=== PATIENT | male | born 1990 | race Caucasian/White ===

== ENCOUNTER 2018-06-03 09:56 | Emergency (ER) | payer OTHER ==
[~2018-06-03] VITALS: Ht 177.8 cm; Wt 116.9 kg
[2018-06-03 10:02] VITALS: TEMP 36.7; Ht 177.8 cm; Wt 116.9 kg
[2018-06-03] MEDS ORDERED: ONDANSETRON INJ 2 MG/ML 2 ML VIAL IV STA (10:25)
[2018-06-03] MEDS ORDERED: SODIUM CHLORIDE 0.9% 1000ML 1,000 ML IV STA (10:25)
[2018-06-03] MEDS ORDERED: GI COCKTAIL PO ONE (10:30)
[2018-06-03] MEDS ORDERED: BUPR2MIS SL (10:43)
[2018-06-03 10:46] LABS: BASO % 0.4 %; BASO ABS # 0.03 K/uL (0-0.2); EOS % 15.4 %; EOS ABS # 1.06 K/uL (0-0.5); HEMATOCRIT 41.3 % (42-52); HEMOGLOBIN 14.1 g/dL (14.0-18.0); IG# 0.02 K/uL (0.00-0.02); LYMPH % 35.1 %; LYMPH ABS # 2.42 K/uL (1.2-3.4); MEAN CELL VOLUME 88.6 fL (80-100); MEAN CORPUSCULAR HEMOGLOBIN 30.3 pg (25-34); MEAN CORPUSCULAR HGB CONC 34.1 g/dl (32-36); MEAN PLATELET VOLUME 10.5 fL (7.4-10.4); MONO ABS # 0.69 K/uL (0.11-0.59); NEUT % 38.8 %; NEUT ABS # 2.68 K/uL (1.4-6.5); PLATELET COUNT 274 K/uL (130-400); RED CELL DISTRIBUTION WIDTH CV 12.8 % (11.5-14.5); RED CELL DISTRIBUTION WIDTH SD 41.3 fL (36.4-46.3)
[2018-06-03] MEDS ORDERED: LIDOCAINE HCL 2% VISC SOLN 20 ML UDC ONE (11:15)
[2018-06-03] MEDS ORDERED: ALUMINUM/MAGNESIUM SUSP 30 ML UDC ONE (11:15)
[2018-06-03 11:25] LABS: CREATININE 0.96 mg/dl (0.60-1.40); TOTAL PROTEIN 7.5 gm/dl (6.4-8.2)
--- NOTE | 2018-06-03 12:04 | DIAGNOSTIC IMAGING REPORT ---
GALLBLADDER-ABD LIMITED CLINICAL HISTORY: epigastic abd paiun pain. Nausea. TECHNIQUE: Ultrasound COMPARISON STUDY: None FINDINGS: Normal gallbladder. Common bile duct 6 mm. Liver is uniform throughout. Pancreas and right kidney are unremarkable. IMPRESSION: Normal study The above report was generated using voice recognition software. It may contain grammatical, syntax or spelling errors. Electronically signed by: Massimo Carbajal M.D. 06/03/2018 12:02 PM Dictated Date/Time: 06/03/2018 12:02 PM
[2018-06-03 12:39] VITALS: BP 118/60; PULSE 78; O2SAT 98
[2018-06-03 12:50] LABS: POTASSIUM 3.9 mmol/L (3.5-5.1)
--- NOTE | 2018-06-03 16:29 | EMERGENCY ROOM VISIT NOTE ---
History Report prepared by Mahendra: aMry Wong Under the Supervision of: Dr. Ismael Espino D.O. First contact with patient: 10:13 Chief Complaint: ABDOMINAL PAIN Stated Complaint: STOMACH PAIN, DIZZINESS History of Present Illness The patient is a 28 year old male who presents to the Emergency Room with complaints of constant abdominal pain that started 5 hours ago. The patient states that when he awoke with the pain. The patient states that the pain is localized to the center of his stomach above his belly button. He states that his pain has decreased in severity since this morning. He states that bending over alleviates the pain and that sitting straight up exacerbates the pain. The patient notes that he has a history of ulcers, but notes that this pain is not as severe as the pain experienced during the ulcer. The patient notes that his last bowel movement was last night. The patient complains of lightheadedness. The patient denies nausea, vomiting, melena, hematochezia, urinary symptoms, and a history of abdominal surgeries. Source of History: patient Onset: 5 hours ago Position: abdomen Timing: constant Modifying Factors (Worsening): other (sitting up straight) Modifying Factors (Relieving): other (bending over) Associated Symptoms: No nausea, No vomiting, No melena, No hematochezia, No urinary symptoms Note: The patient complains of lightheadedness. Review of Systems See HPI for pertinent positives & negatives. A total of 10 systems reviewed and were otherwise negative. Past Medical & Surgical Medical Problems: (1) No Known Active Medical Problems No known medical problems. Family History Patient reports no known family medical history. Social History Smoking Status: Former Smoker Marital Status: Housing Status: lives with significant other Occupation Status: employed Current/Historical Medications Scheduled Buprenorphine Hcl-Naloxone Hcl (Suboxone 2-0.5 Mg), 1 EA SL DAILY Allergies Coded Allergies: No Known Allergies (Unverified , 06/03/18) Physical Exam Vital Signs Date Time Temp Pulse Resp B/P (MAP) Pulse Ox O2 Delivery O2 Flow Rate FiO2 06/03/18 12:39 78 20 118/60 98 Room Air 06/03/18 11:23 62 20 104/70 96 Room Air 06/03/18 10:02 36.7 75 20 134/70 97 Room Air Physical Exam GENERAL: Sitting up in bed, alert, well appearing, well nourished, no distress, non-toxic EYE EXAM: normal conjunctiva. OROPHARYNX: no exudate, no erythema, lips, buccal mucosa, and tongue normal and mucous membranes are moist NECK: supple, no nuchal rigidity, no adenopathy, non-tender LUNGS: Clear to auscultation. Normal chest wall mechanics HEART: no murmurs, S1 normal and S2 normal ABDOMEN: abdomen soft, faint tenderness in the epigastric region, normo-active bowel sounds, no masses, no rebound or guarding. BACK: Back is symmetrical on inspection and there is no deformity, no midline tenderness, no CVA tenderness. SKIN: no rashes and no bruising UPPER EXTREMITIES: upper extremities are grossly normal. LOWER EXTREMITIES: No pitting edema. NEURO EXAM: Normal sensorium, cranial nerves II-XII grossly intact, normal speech, no gross weakness of arms, no gross weakness of legs. Medical Decision & Procedures ER Provider Diagnostic Interpretation: Radiology results as stated below per my review and the radiologist's interpretation: GALLBLADDER-ABD LIMITED CLINICAL HISTORY: epigastic abd paiun pain. Nausea. TECHNIQUE: Ultrasound COMPARISON STUDY: None FINDINGS: Normal gallbladder. Common bile duct 6 mm. Liver is uniform throughout. Pancreas and right kidney are unremarkable. IMPRESSION: Normal study The above report was generated using voice recognition software. It may contain grammatical, syntax or spelling errors. Electronically signed by: Massimo Carbajal M.D. 06/03/2018 12:02 PM Dictated Date/Time: 06/03/2018 12:02 PM Laboratory Results 06/03/18 10:36 Red Blood Count 4.66, Mean Corpuscular Volume 88.6, Mean Corpuscular Hemoglobin 30.3, Mean Corpuscular Hemoglobin Concent 34.1, Mean Platelet Volume 10.5, Neutrophils (%) (Auto) 38.8, Lymphocytes (%) (Auto) 35.1, Monocytes (%) (Auto) 10.0, Eosinophils (%) (Auto) 15.4, Basophils (%) (Auto) 0.4, Neutrophils # (Auto ) 2.68, Lymphocytes # (Auto) 2.42, Monocytes # (Auto) 0.69, Eosinophils # (Auto ) 1.06, Basophils # (Auto) 0.03 06/03/18 10:36 06/03/18 12:20 Test 06/03/18 10:30 06/03/18 10:36 06/03/18 12:20 Urine Color YELLOW Urine Appearance CLEAR (CLEAR) Urine pH 5.5 (4.5-7.5) Urine Specific [place] 1.033 (1.000-1.030) Urine Protein NEG (NEG) Urine Glucose (UA) NEG (NEG) Urine Ketones TRACE (NEG) Urine Occult Blood NEG (NEG) Urine Nitrite NEG (NEG) Urine Bilirubin NEG (NEG) Urine Urobilinogen NEG (NEG) Urine Leukocyte Esterase NEG (NEG) Urine WBC (Auto) 1-5 /hpf (0-5) Urine RBC (Auto) 0-4 /hpf (0-4) Urine Hyaline Casts (Auto) 1-5 /lpf (0-5) Urine Epithelial Cells (Auto) 0-5 /lpf (0-5) Urine Bacteria (Auto) NEG (NEG) White Blood Count 6.90 K/uL (4.8-10.8) Red Blood Count 4.66 M/uL (4.7-6.1) Hemoglobin 14.1 g/dL (14.0-18.0) Hematocrit 41.3 % (42-52) Mean Corpuscular Volume 88.6 fL (80-100) Mean Corpuscular Hemoglobin 30.3 pg (25-34) Mean Corpuscular Hemoglobin Concent 34.1 g/dl (32-36) Platelet Count 274 K/uL (130-400) Mean Platelet Volume 10.5 fL (7.4-10.4) Neutrophils (%) (Auto) 38.8 % Lymphocytes (%) (Auto) 35.1 % Monocytes (%) (Auto) 10.0 % Eosinophils (%) (Auto) 15.4 % Basophils (%) (Auto) 0.4 % Neutrophils # (Auto) 2.68 K/uL (1.4-6.5) Lymphocytes # (Auto) 2.42 K/uL (1.2-3.4) Monocytes # (Auto) 0.69 K/uL (0.11-0.59) Eosinophils # (Auto) 1.06 K/uL (0-0.5) Basophils # (Auto) 0.03 K/uL (0-0.2) RDW Standard Deviation 41.3 fL (36.4-46.3) RDW Coefficient of Variation 12.8 % (11.5-14.5) Immature Granulocyte % (Auto) 0.3 % Immature Granulocyte # (Auto) 0.02 K/uL (0.00-0.02) Anion Gap 6.0 mmol/L (3-11) Est Creatinine Clear Calc Drug Dose 149.4 ml/min Estimated GFR () 125.9 Estimated GFR (Non- 108.7 BUN/Creatinine Ratio 13.4 (10-20) Calcium Level 9.0 mg/dl (8.5-10.1) Total Bilirubin 0.7 mg/dl (0.2-1) Alanine Aminotransferase (ALT/SGPT) 25 U/L (12-78) Alkaline Phosphatase 69 U/L (45-117) Total Protein 7.5 gm/dl (6.4-8.2) Albumin 4.0 gm/dl (3.4-5.0) Lipase 66 U/L (73-393) Direct Bilirubin 0.1 mg/dl (0-0.2) Aspartate Amino Transf (AST/SGOT) 17 U/L (15-37) Laboratory results per my review. Medications Administered Medications (Trade) Dose Ordered Sig/Star Route Start Time Stop Time Status Last Admin Dose Admin Sodium Chloride 1,000 ml @ 999 mls/hr Q1H1M STAT IV 06/03/18 10:25 06/03/18 11:25 DC 06/03/18 10:25 999 MLS/HR Ondansetron HCl (Zofran Inj) 4 mg NOW STAT IV 06/03/18 10:25 06/03/18 10:27 DC 06/03/18 11:18 4 MG Al Hydroxide/Mg Hydroxide (Maalox Susp) 30 ml STK-MED ONCE .ROUTE 06/03/18 11:15 06/03/18 11:16 DC 06/03/18 11:18 30 ML Lidocaine HCl (Viscous Lidocaine 2% Soln) 20 ml STK-MED ONCE .ROUTE 06/03/18 11:15 06/03/18 11:16 DC 06/03/18 11:18 20 ML ED Course ED COURSE: Vital signs were reviewed and showed hypertensive situationally. The patients medical record was reviewed The above diagnostic studies were performed and reviewed. ED treatments and interventions as stated above. 1018: The patient was evaluated in room B6. A complete history and physical examination was performed. 1025: Ordered Zofran Inj 4 mg IV, NSS 1000 ml @ 999 mls/hr IV. 1030: Ordered GI Cocktail 24 ml PO. 1240: Upon reevaluation, the patient is resting comfortably and feels much better. I discussed my findings with the patient and he understands and agrees with the treatment plan. Based on the patients age, coexisting illnesses, exam and lab findings the decision to treat as an outpatient was made. The patient remained stable while under my care. The patient appeared well at the time of discharge. Medical Decision Differential diagnoses includes but is not limited to gastritis, peptic ulcer disease, GERD, gallbladder disease, pancreatitis, small bowel obstruction, acute coronary syndrome, pericarditis, ischemic bowel, irritable bowel disease, irritable bowel syndrome, appendicitis, diverticulitis, malignancy, hernia, urinary tract infection, torsion, perforation, trauma, infectious. Patient is a 28-year-old male who presents the ER with epigastric abdominal pain which started around 5 AM. He notes getting significantly better. Abdominal exam is completely benign. CBC along with BMP, LFTs, bilirubin lipase was unremarkable. UA was negative. Epigastric ultrasound was unremarkable. Patient was given fluids, GI cocktail and Toradol. He had significant/resolution of his symptoms. He was discharged follow-up with PCP as an outpatient. Discussed with Pt concerning signs and symptoms to watch out for. Pt was instructed to follow up with their PCP and discussed with the patient their option to return to the ED at anytime for persistent or worsening symptoms. The appropriate anticipatory guidance and out-patient management, including indications for return to the emergency department, were explained at length to the patient and understood. Medication Reconcilliation Current Medication List: was personally reviewed by me Blood Pressure Screening Patient's blood pressure: Elevated blood pressure Blood pressure disposition: Elevated BP felt to be situational Impression Primary Impression: Abdominal pain Scribe Attestation The scribe's documentation has been prepared under my direction and personally reviewed by me in its entirety. I confirm that the note above accurately reflects all work, treatment, procedures, and medical decision making performed by me. Departure Information Dispostion Home / Self-Care Forms HOME CARE DOCUMENTATION FORM, IMPORTANT VISIT INFORMATION Patient Instructions My [facility] Additional Instructions Please follow up with your primary care doctor with in the next 24 hours. Any worsening of your symptoms, please return to the ED immediately. This includes any fevers greater than 100.4, worsening pain, chest pain, shortness breath, persistent nausea, vomiting, unable to eat or drink, or any other concerning signs or symptoms from your standpoint. Problem Qualifiers Primary Impression: Abdominal pain Abdominal location: unspecified location Qualified Codes: R10.9 - Unspecified abdominal pain
== END 2018-06-03 12:50 | disposition home or self-care (01) ==
LOC: C.EDB 09:59
DX: R10.13 Epigastric pain (principal); Z87.891 Personal history of nicotine dependence; Z79.899 Other long term (current) drug therapy